=== PATIENT | female | born 1970 | race American Indian/Alaskan Native ===

== ENCOUNTER 2016-10-05 10:20 | Outpatient (CLI) | payer OTHER ==
--- NOTE | 2016-10-05 12:47 | XRay Report ---
LUMBOSACRAL SPINE, 3 VIEWS: History: Back pain, arthritis Findings: Normal bone mineralization. Normal height and alignment of the lumbar vertebral bodies. Minimal degenerative disc disease and facet arthropathy are identified at all levels. No advanced degenerative changes. No fracture, subluxation or bone lesion. The sacrum and SI joints are unremarkable. Impression: Mild multilevel lumbar spondylosis. These findings are likely within normal limits for this patient's age.
--- NOTE | 2016-10-05 12:47 | XRay Report ---
RIGHT SHOULDER, 3 views: History: Right shoulder pain, arthritis. Routine views demonstrate normal bony and soft tissue structures with normal joint alignment of the shoulder. IMPRESSION: Normal study. No significant arthritic changes.
--- NOTE | 2016-10-05 12:48 | XRay Report ---
BILATERAL HIPS WITH PELVIS, 3 VIEWS: History: Pain. Arthritis. Findings: Bone mineralization is within normal limits. There is no evidence for fracture, dislocation or pelvic diastasis. Mild osteoarthritic changes are noted in the right hip. The left hip is within normal limits. The soft tissues are unremarkable. Impression: Minimal osteoarthritic changes at the right hip.
== END 2016-10-05 10:21 | disposition home or self-care (01) ==
LOC: XRAY 10:20
PROVIDERS: ATTEND Internal Medicine
DX: M16.11 Unilateral primary osteoarthritis, right hip (principal); M51.36 Other intervertebral disc degeneration, lumbar region; M47.896 Other spondylosis, lumbar region; M25.552 Pain in left hip; M25.511 Pain in right shoulder
CPT/HCPCS: 72100; 73521